=== PATIENT | male | born 1970 | race African-American/Black ===

== ENCOUNTER 2023-11-19 08:48 | Day surgery (SDC) | payer OTHER ==
[2023-11-15 19:34] VITALS: BMI 31.4
[2023-11-19 11:52] VITALS: RESP 20; TEMP 96.7
[2023-11-19 11:55] VITALS: BP 100/54; PULSE 62
== END 2023-11-19 10:50 | disposition home or self-care (01) ==
LOC: FASU-ENDO 08:48
PROVIDERS: ATTEND Internal Medicine Gastroenterology
PROC: 0DJD8ZZ Inspection of Lower Intestinal Tract, Via Natural or Artificial Opening Endoscopic (ICD-10-PCS; principal; 2023-11-19 09:39)
DX: Z12.11 Encounter for screening for malignant neoplasm of colon (principal); K57.30 Diverticulosis of large intestine without perforation or abscess without bleeding; K64.1 Second degree hemorrhoids; Z86.010 Personal history of colon polyps